=== PATIENT | female | born 1975 | race Caucasian/White ===

== ENCOUNTER → 2023-11-03 | Outpatient (REF) | payer OTHER | LOC: US 07:57 | PROVIDERS: ATTEND Nurse Practitioner | DX: K76.0 Fatty (change of) liver, not elsewhere classified (principal); R22.2 Localized swelling, mass and lump, trunk; Z87.11 Personal history of peptic ulcer disease; R14.0 Abdominal distension (gaseous); R12 Heartburn; K59.09 Other constipation | CPT/HCPCS: 76700 ==

== ENCOUNTER → 2023-12-16 | Day surgery (SDC) | payer OTHER ==
[~2023-12-16] MED LIST: DOCUSATE SODIU100 MG PO; FENTANYL CITRATE/PF 100MCG/2 ML INJ ONE; FERROUS SULFAT325 MG PO; GABAPENTIN300 MG PO; GLYCOPYRROLATE INJ 0.2 MG/ML VIAL ONE; HYDROCODON-ACE1 EA12 PO; LIDOCAINE HCL 2% LOCAL INJ 5 ML SDV VIAL INJ ONE; METOCLOPRAMIDE HCL 10 MG/2ML VIAL ONE; MIDAZOLAM HCL 2 MG/2 ML VIAL ONE; PANTOPRAZOLE SO40 MG PO; PROPOFOL IV EMULSION 10 MG/ML 20 ML VIAL ONE; SODIUM CHLORIDE 0.9% INJ 10 ML VIAL ONE; TRAZODONE HCL50 MG PO; VIT B12 PO; VIT D2 PO
[2023-12-16] MEDS: LACTATED RINGER'S 1,000 ML ONE (06:59)
[2023-12-16 07:48] VITALS: TEMP 97
[2023-12-16 08:30] VITALS: BP 132/61; PULSE 84; RESP 17; O2SAT 99
== END | disposition home or self-care (01) ==
LOC: OR 06:05
PROVIDERS: ATTEND Internal Medicine Gastroenterology
DX: R19.00 Intra-abdominal and pelvic swelling, mass and lump, unspecified site (principal); K31.2 Hourglass stricture and stenosis of stomach; K25.9 Gastric ulcer, unspecified as acute or chronic, without hemorrhage or perforation; K20.90 Esophagitis, unspecified without bleeding; K21.9 Gastro-esophageal reflux disease without esophagitis; K44.9 Diaphragmatic hernia without obstruction or gangrene; Z98.84 Bariatric surgery status; D64.9 Anemia, unspecified; E55.9 Vitamin D deficiency, unspecified; G89.29 Other chronic pain; Z88.0 Allergy status to penicillin; Z79.899 Other long term (current) drug therapy; Z86.711 Personal history of pulmonary embolism
CPT/HCPCS: 43239; 43245; J2001; J2250; J2470; J2704; J2765; J3010; J7121; 43450

== ENCOUNTER → 2024-03-09 | Day surgery (SDC) | payer OTHER ==
[~2024-03-09] MED LIST changes: +ESMOLOL HCL 100MG/10ML 10 MG/ML VIAL ONE; -GLYCOPYRROLATE INJ 0.2 MG/ML VIAL ONE; -LIDOCAINE HCL 2% LOCAL INJ 5 ML SDV VIAL INJ ONE; -METOCLOPRAMIDE HCL 10 MG/2ML VIAL ONE; -MIDAZOLAM HCL 2 MG/2 ML VIAL ONE; +REGLAN10 MG PO; -SODIUM CHLORIDE 0.9% INJ 10 ML VIAL ONE
[2024-03-09] MEDS: LACTATED RINGER'S 1,000 ML ONE (13:39)
[2024-03-09 15:23] VITALS: TEMP 97.1
[2024-03-09 15:45] VITALS: BP 120/86; PULSE 95; RESP 18; O2SAT 99
== END | disposition home or self-care (01) ==
LOC: ENDO 12:10
PROVIDERS: ATTEND Internal Medicine Gastroenterology
DX: R11.2 Nausea with vomiting, unspecified (principal); K25.9 Gastric ulcer, unspecified as acute or chronic, without hemorrhage or perforation; K31.89 Other diseases of stomach and duodenum; K22.10 Ulcer of esophagus without bleeding; K21.9 Gastro-esophageal reflux disease without esophagitis; Z98.84 Bariatric surgery status; R63.4 Abnormal weight loss; K59.00 Constipation, unspecified; G62.9 Polyneuropathy, unspecified; G89.29 Other chronic pain; Z88.0 Allergy status to penicillin; Z79.899 Other long term (current) drug therapy
CPT/HCPCS: 43245; C1726; J2470; J2704; J7121; 43450